=== PATIENT | male | born 2000 | race Two or more races ===

== ENCOUNTER 2019-09-03 09:19 | Outpatient (CLI) | payer OTHER ==
[~2019-09-03] VITALS: Ht 167.6 cm; Wt 74.8 kg
== END 2019-09-03 11:46 | disposition home or self-care (01) ==
LOC: OFIC 805 09:19
DX: J35.1 Hypertrophy of tonsils (principal); B27.80 Other infectious mononucleosis without complication; B08.8 Other specified viral infections characterized by skin and mucous membrane lesions; K12.39 Other oral mucositis (ulcerative); Z77.22 Contact with and (suspected) exposure to environmental tobacco smoke (acute) (chronic)